=== PATIENT | male | born 1950 | race Caucasian/White ===

== ENCOUNTER 2021-04-14 07:53 | Outpatient (CLI) | payer MEDICARE, BC ==
[2021-04-14] MEDS ORDERED: Iopamidol-370 76% 500 ML 1 ML ONE (15:03)
== END 2021-04-14 07:54 | disposition home or self-care (01) ==
LOC: BICCT 07:53
PROVIDERS: ATTEND Physician Assistant Medical
DX: R10.12 Left upper quadrant pain (principal); R74.8 Abnormal levels of other serum enzymes; K76.0 Fatty (change of) liver, not elsewhere classified; K76.9 Liver disease, unspecified
CPT/HCPCS: 74160; 82565; Q9967

== ENCOUNTER 2021-06-02 08:31 | Outpatient (CLI) | payer MEDICARE, BC ==
[2021-06-02] MEDS ORDERED: Iopamidol 370 76% 100 ML VIAL ONE (10:37)
== END 2021-06-02 08:32 | disposition home or self-care (01) ==
LOC: BICCT 08:31
PROVIDERS: ATTEND Internal Medicine Gastroenterology
DX: K85.90 Acute pancreatitis without necrosis or infection, unspecified (principal)
CPT/HCPCS: 74170; 82565; Q9967

== ENCOUNTER 2021-08-29 09:01 | Outpatient (CLI) | payer MEDICARE, BC ==
[2021-08-29 11:35] LABS: Mean Corpuscular HGB CONC 31.2 g/dL (32.0-36.0); Mean Corpuscular Hemoglobin 28.5 pg (27.0-33.0); Mean Corpuscular Volume 91.4 fl (81.2-95.1); Mean Platelet Volume 9.8 fl (7.4-10.4); Platelet Count 562 10x3/uL (150-450); RBC Distribution Width 14.5 % (11.5-14.5); Red Blood Cell (RBC) Count 4.21 10x6/uL (4.32-5.72); White Blood Cell (WBC) Count 9.7 10x3/uL (3.5-10.5)
[2021-08-29 20:42] LABS: SARS-CoV-2 PCR by NAA Not Detected (NotDetected)
== END 2021-08-29 09:02 | disposition home or self-care (01) ==
LOC: LABBT 09:01
PROVIDERS: ATTEND Surgery
DX: Z01.818 Encounter for other preprocedural examination (principal); C25.9 Malignant neoplasm of pancreas, unspecified; Z20.822 Contact with and (suspected) exposure to COVID-19
CPT/HCPCS: 85027; 93005; U0003; U0005; 93010

== ENCOUNTER 2021-09-02 06:41 | Day surgery (SDC) | payer MEDICARE, BC ==
[2021-08-29 10:08] VITALS: BMI 23.4
[2021-09-02] MEDS ORDERED: Bupivacaine 0.25% 10 ML VIAL ONE (07:26)
[2021-09-02] MEDS ORDERED: Xylocaine 1% w/ Epi 1:100K 10 ML VIAL ONE (07:26)
[2021-09-02] MEDS ORDERED: PROPOFOL 40 ML ONE (07:31)
[2021-09-02] MEDS ORDERED: ceFAZolin 2 GM/DEX 5% 100 ML BAG ONE (07:39)
[2021-09-02] MEDS ORDERED: Fentanyl 100 MCG/2 ML VIAL ONE (08:35)
== END 2021-09-02 09:29 | disposition home or self-care (01) ==
LOC: SDC 06:41
PROVIDERS: ATTEND Surgery
PROC: 0JH60WZ Insertion of Totally Implantable Vascular Access Device into Chest Subcutaneous Tissue and Fascia, Open Approach (ICD-10-PCS; principal; 2021-09-02)
PROC: 02HV33Z Insertion of Infusion Device into Superior Vena Cava, Percutaneous Approach (ICD-10-PCS; 2021-09-02)
DX: C25.9 Malignant neoplasm of pancreas, unspecified (principal); I10 Essential (primary) hypertension; E78.5 Hyperlipidemia, unspecified; Q21.1 Atrial septal defect; Z86.73 Personal history of transient ischemic attack (TIA), and cerebral infarction without residual deficits; Z87.891 Personal history of nicotine dependence; Z79.811 Long term (current) use of aromatase inhibitors; Z79.899 Other long term (current) drug therapy; Z90.411 Acquired partial absence of pancreas
CPT/HCPCS: 36561; 71045; C1788; J1642; J2704; J3010; S0020

== ENCOUNTER 2022-08-20 08:34 | Outpatient (CLI) | payer MEDICARE, BC ==
[2022-08-20] MEDS ORDERED: Iopamidol 370 76% 100 ML VIAL ONE (11:35)
== END 2022-08-20 08:35 | disposition home or self-care (01) ==
LOC: BICCT 08:34
PROVIDERS: ATTEND Internal Medicine Hematology & Oncology
DX: C25.9 Malignant neoplasm of pancreas, unspecified (principal); Z90.411 Acquired partial absence of pancreas; Z90.81 Acquired absence of spleen
CPT/HCPCS: 71260; 74177; 82565; Q9967

== ENCOUNTER 2023-03-05 10:27 | Outpatient (CLI) | payer MEDICARE, BC ==
[2023-03-05] MEDS ORDERED: Iopamidol-370 76% 500 ML MDV (1 ML CHARGE) ONE (10:50)
== END 2023-03-05 10:28 | disposition home or self-care (01) ==
LOC: BICCT 10:27
PROVIDERS: ATTEND Internal Medicine Hematology & Oncology
DX: C25.2 Malignant neoplasm of tail of pancreas (principal)
CPT/HCPCS: 71260; 74177; 82565

== ENCOUNTER 2023-05-27 13:33 | Outpatient (CLI) | payer MEDICARE, BC | END 2023-05-27 13:34 | disposition home or self-care (01) | LOC: ULT 13:33 | PROVIDERS: ATTEND Psychiatry & Neurology Neurology | DX: R55 Syncope and collapse (principal) | CPT/HCPCS: 93880 ==

== ENCOUNTER 2023-09-06 07:31 | Outpatient (CLI) | payer MEDICARE, BC ==
[2023-09-06] MEDS ORDERED: Iopamidol 370 76% 100 ML VIAL ONE (09:13)
== END 2023-09-06 07:32 | disposition home or self-care (01) ==
LOC: CT 07:31
PROVIDERS: ATTEND Internal Medicine Hematology & Oncology
DX: C25.2 Malignant neoplasm of tail of pancreas (principal); I26.99 Other pulmonary embolism without acute cor pulmonale; Z79.899 Other long term (current) drug therapy
CPT/HCPCS: 71260; 74177; 83036; 86301; Q9967

== ENCOUNTER 2025-05-21 13:21 | Outpatient (CLI) | payer MEDICARE, BC | END 2025-05-21 13:22 | disposition home or self-care (01) | LOC: SCSMRI 13:21 | PROVIDERS: ATTEND Urology | DX: R97.20 Elevated prostate specific antigen [PSA] (principal) | CPT/HCPCS: 72197 ==